=== PATIENT | female | born 1995 | race Caucasian/White ===

== ENCOUNTER 2016-06-30 09:41 | Inpatient (IN) | payer OTHER ==
[~2016-06-30] VITALS: Ht 170.2 cm; Wt 83.8 kg
--- NOTE | ~2016-06-30 | RESCARESUM ---
PATIENT: VIN GOMEZ | | [facility] UNIT #: [id number] | [address] AGE/SEX: 21 F : [birth year] | [address] | [place] [address] ADMIT/REG DATE: 06/30/16 | ROOM: [facility] LOC: ADTC | ADTC | Summary of Residential Care Primary Counselor: Lanette EDMONDS Date of Admission: 06/30/16 Date of Discharge: 07/19/16 Referral Source: Director Operating Room Carleen Dorantes and Florence Brown Primary Care Provider Prior to Admission: Self Admitting Diagnosis: 304.40 Stimulant Use Disorder, Severe, with history of IV use; 305.10 Tobacco Dependence; Increased risk of HIV and Hepatitis C; Late menstrual period; Dental Caries, ALL PER DR[facility]. Discharge Diagnosis: Same, along with positive test. Goals Achieved: Vin was able to complete the initial paperwork, including Step 1, which helped her to identify negative consequences of her addiction, along with gaining insight to the disease concept. She wrote and processed feelings letters and worked thru the crisis of finding out she's . Continued Obstacles to Sobriety/Relapse Issues: Not [facility], male relationships, not dealing with feelings, not attending AA/NA meetings, not getting a job, not learning how to work a strong program of recovery. Family Issues Addressed: Vin's Mom was deported when she was 12, so we worked thru that grief. She broke up with her boyfriend, who is the father of her baby, and her sister had been dealing with health issues, so all of these things were addressed and worked thru. Y Individual Therapy Y Group Therapy Y Educational Series on Substance Abuse Y Parents/Significant Others Attended Family Program N Acute Medical Problems During the Course of Treatment N Transferred to Hospital During the Course of Treatment Y Accepting of Substance Abuse Problem N Non-accepting of Substance Abuse Problem N Required Psychological or Psychiatric Consultation During the Course of Treatment Completed AA Step # 1 During This Level of Care Significant Incidences During Treatment: While here in treatment, Vin did a test, and it was negative. A week later, she asked about doing another, as she "felt ". The second test was positive. She was upset, scared, excited, and not sure which one she should even be feeling. She did a good job dealing with it. Reason For Discharge: Y Completed Residential [place] Goals and Ready For Next Level of Care PATIENT: VIN GOMEZ K | | [facility] UNIT #: [id number] | [address] AGE/SEX: 21 F : [birth year] | [address] | [place] [address] ADMIT/REG DATE: 06/30/16 | ROOM: [facility] LOC: ADTC | ADT | Summary of Residential Care N Left Tx Against Medical Advice/Treatment Goals Not Complete N Completed Residential Tx Goals But Refusing Continuing Care Recommendations N Discharged Due to Noncompliance/Treatment Goals not Completed N Discharged Earlier Than Planned Due to: Continuing Care Plan/Recommendations: N Intensive Partial Care Y Sponsor N Partial Care Y AA Meetings/NA Meetings N Outpatient N Co-dependency Services Y Therapeutic Community N 1/[address] [facility] [address] [facility] N Mental Health Therapy N Marriage Counseling N Other Specific Continuing Care Plan: It is recommended that Vin go directly to [facility], follow all rules and regulations, learn how to work their program, as well as to begin attending AA/NA meetings, get a director multimedia job and learn how to work a strong program of recovery. PRIMARY COUNSELOR: KENDAL Martin
--- NOTE | ~2016-06-30 | INDIVTXPLN ---
"PATIENT: VIN GOMEZ | | [facility] UNIT #: [id number] | [address] AGE/SEX: 20 F : [birth year] | [address] | [place] [address] ADMIT/REG DATE: 06/30/16 | ROOM: [facility] LOC: ADTC | ADTC | Individualized Treatment Plan Date: 07/05/16 Problem Statement/Issue Identified: Client has learned to deny or stuff feelings; needs to learn to identify and process feelings in a clean/sober manner. Goal: Client will learn how to identify and express feelings in a healthy, clean/sober manner. Objectives/Activities to achieve goal: 1. Client is to write the following people feelings letters, each separately, and process them with counselor and in family group when able: Her Mother, Father, Significant Other, Son and Sister. Due Date:07/15/16 Complete: Incomplete: Client signature Date Counselor signature Date Outcome/Measurement of Progress Towards Goal: Counselor's signature Date "
--- NOTE | ~2016-06-30 | TXPLANREV ---
"PATIENT: VIN GOMEZ | | [facility] UNIT #: [id number] | [address] AGE/SEX: 20 F : [birth year] | [address] | [place] [address] ADMIT/REG DATE: 06/30/16 | [facility] | ADTC | Treatment Plan/Staffing Review Date: 07/12/16 Treatment plan was reviewed and determined appropriate as written: Yes Treatment plan was reviewed and the following changes/addition/deletions are necessary: Client is to continue working on treatment plan assignments. She is working on feelings letters. Discharge plans were reviewed and determined appropriate as previously documented: No Discharge plans were reviewed and determined to be as follows: [facility], where she will also be recommended to attend AA/NA meetings, as well as to get and call a sponsor on a regular basis. Other pertinent issues discussed during this staffing review include: None at this time. Staff Present: Barbara Mederos PRIMARY COUNSELOR: KENDAL Martin Client Signature Counselor Signature Date Time "
--- NOTE | ~2016-06-30 | CLPRLASSUM ---
PATIENT: VIN GOMEZ | | [facility] UNIT #: [id number] | [address] AGE/SEX: 20 F : [birth year] | [address] | [place] [address] ADMIT/REG DATE: 06/30/16 | ROOM: [facility] LOC: ADTC | ADTC | Client Problem List/Assessment Summary Date: 07/05/16 Problems identified by the client: Client has charges pending, and is on probation. Problems identified by significant others: Same Client's Strengths: Client identified her strengths as: Her Higher Power, hope and praying. Problem List: Code: T Client continues to use alcohol &/or drugs despite ongoing negative consequences. Code: T Client does not "reach-out to others for help" and instead resumes using alcohol &/or drugs. Code: T Client has learned to deny or stuff feelings; needs to learn to identify and process feelings with safe people to acquire the necessary skills to maintain group home sobriety. Code: T Client needs to identify relapse warning signs and develop a plan to deal with them as they arise. Code Lane: T: to be addressed during course of treatment O: problem noted, expected to resolve itself with abstinence--specific tx plan not required R: problem noted, will be referred upon discharge PRIMARY COUNSELOR: KENDAL Martin
--- NOTE | ~2016-06-30 | INDIVTXPLN ---
"PATIENT: VIN GOMEZ | | [facility] UNIT #: [id number] | [address] AGE/SEX: 20 F : [birth year] | [address] | [place] [address] ADMIT/REG DATE: 06/30/16 | ROOM: [facility] LOC: ADTC | ADTC | Individualized Treatment Plan Date: 07/05/16 Problem Statement/Issue Identified: Client continues to use alcohol &/or drugs despite ongoing negative consequences, including legal, and after having gone to treatment twice in the past 2 years, and being in IOP, and she did not reach out to others for help before she used/drank. Goal: Client will learn to identify negative consequences of her addiction, attend AA/NA meetings and meet women in recovery. Objectives/Activities to achieve goal: 1. Client is to complete the How to Get Started packet, process it with counselor and selected pages in group. Due Date:07/08/16 Complete: Incomplete: 2. Client is to complete Step 1, Process it with counselor and selected pages in group. Due Date:07/12/16 Complete: Incomplete: 3. Client is to attend AA/NA meetings, ask for and get at least 5 names and numbers of women in recovery and share that list with counselor. Due Date:07/22/16 Complete: Incomplete: Client signature Date Counselor signature Date Outcome/Measurement of Progress Towards Goal: Counselor's signature Date "
--- NOTE | 2016-06-30 15:34 | NUR ---
Education 1 Hour: Client heard a panel of speakers from the local recovery community, who shared their experience, strength and hope.
--- NOTE | 2016-06-30 16:00 | NUR ---
INITIAL SESSION 1 HR: Clt was oriented to tx plans, schedules and what to expect from tx and this counselor. She advised she had started IOP but was kicked out for not showing up. She stated she had been living with her boyfriend, and wants to go home to her sister's, who just found out she has cancer. She stated her sister needs her help. Clt also advised her mom was a former clt here, and has been deported back to [place] for not becoming a [place] citizen. Will process to see where she is w/ that.
--- NOTE | 2016-06-30 16:08 | NUR ---
ADMISSION NOTE Client is a 20 y/o, single female referred to treatment by probation and brought here today by her sister from [facility] where she had been for the last 10 days. Client states NKMA and brings no home medications with her today. Client resides in [place] with her significant other and his mother. Client anticipates that he sister, father and significant other will particiipated in family group. Client states DOC is meth, last used 24 days ago when she, "smoked a bowl." Client was searched, no contraband found. Rights/Responsibilities: Copy given and explained to client. Signed and accepted by client. Client oriented to physical lay out of the ADTC unit, given Big Book and admission packet. A Foster was assigned. Janay
--- NOTE | 2016-06-30 23:23 | NUR ---
TECH NOTE: Client redecorated the building for [facility] [employer], participated in Guided Meditation and attended on-site AA meeting. Did first day introductions SE: 1st day
--- NOTE | 2016-07-01 04:37 | NUR ---
Bed Note: Clt lay motionless in bed with eyes closed showing no distress at all bed checks.
--- NOTE | 2016-07-01 11:04 | NUR ---
FAMILY CONTACT: Daisy's dad was called, but he was at work, so couldn't talk. He was informed of visiting hours. Another call was made to daisy's sister, and a message was left w/ her informing her of the same and of family education.
--- NOTE | 2016-07-01 11:06 | NUR ---
TRAUMA NOTE: Will process clt's Mom being deported as her trauma.
--- NOTE | 2016-07-01 11:30 | NUR ---
PEER REVIEWS, 1 HR: Clt participated in peer review process and was able to give open and honest feedback to those receiving a review.
--- NOTE | 2016-07-01 11:30 | NUR ---
Group 1.5hr/ 9:1 Clients heard peers share GS/Step 1 packets and this client did get ORIENTED TO GROUP RULES and shared some about herself. She said her mom was deported back to [place] due to meth and she now has meth charges. Client related to home life being embarrassing as a kid.
--- NOTE | 2016-07-01 15:49 | NUR ---
Tech Note: Client watched the second half of Pleasure [employer]ven for education and is working on Getting Started.
--- NOTE | 2016-07-01 20:32 | NUR ---
Tech note: client watched tv and movies, attended optional offsite AA mtg SE:group
--- NOTE | 2016-07-02 04:33 | NUR ---
Bed note: client was in bed with eyes closed and no distess at all bed checks
--- NOTE | 2016-07-02 16:28 | NUR ---
Tech Note: Client attended N.A.Panel and is working on Step One. Client also had a visit.
--- NOTE | 2016-07-02 20:13 | NUR ---
tech note: Client did service work at offsite location where clients attended the AA meeting. Client watched tv. SE: visit.
--- NOTE | 2016-07-03 05:00 | NUR ---
Bed Note : Client had eyes closed and in no distress at all bed checks.
--- NOTE | 2016-07-03 16:24 | NUR ---
Tech Note: Client is working on step 1, went to scientologist and had visitors
--- NOTE | 2016-07-03 17:38 | NUR ---
Med note: client complained of headache pain level 7. motrin given
--- NOTE | 2016-07-03 22:03 | NUR ---
tech note: client c/o level 6 headache @ 2133,motrin 400 mg was given.
--- NOTE | 2016-07-03 23:37 | NUR ---
TECH NOTE: Client attended AA panel, participated in community clean and watched tv/movies. Attended optional [employer] meeting but left early SE: upcoming visits next weekend
--- NOTE | 2016-07-04 04:14 | NUR ---
BED NOTE: Client was in bed, motionless with eyes closed all three bed checks.
--- NOTE | 2016-07-04 07:27 | HP ---
ADMIT: 06/30/2016 RM/LOC: [facility] MR#: [id number] [address] [address] TIFFANIE GOMEZ [address] [place] [address] History and Physical SEX: F AGE: 20 : 1995 DATE OF SERVICE: CHIEF COMPLAINT: Chemical dependency. HISTORY OF PRESENT ILLNESS: Tiffanie is a 20-year-old, engaged white female admitted to residential level treatment at [facility] on June 30, 2016 after transfer from nursing home for 10 days. She is currently on probation for distribution of meth. She has been through treatment at [facility]. She states she had HIV and hepatitis C testing done a month ago at [facility]. She continued to use while in intensive outpatient treatment at the [facility] with charges pending for aiding in abetting, fraud, and ultimately was referred to residential level treatment. Tiffanie's drug of choice on admission was meth. She first started using meth at 15 years of age with an ex-boyfriend. States she used 3-4 g daily from the beginning. She states she has done daily off and on ever since. Her heaviest use was last year, when she would use two to four 8-ball a day. She states she for the most part smoked it. She has only done IV on one occasion. States her fiance and her both dealt off and on for years. She has been through treatment at [facility] twice in 2014 and 2015 and recently was an [facility] intensive outpatient. She denies second drug of choice. She admits to using marijuana four times and tried Xanax and Adderall a couple of times. States she never really liked alcohol, never really drank. She denies any other illicit drugs. PAST MEDICAL HISTORY: OPERATIONS: Include a in 2011 and tonsil and adenoidectomy. ILLNESSES: None. She has HIV and hepatitis C testing done a month ago at [facility] in [place] and does not know the results. SOCIAL HISTORY: A 20-year-old engaged white female, she has one child who is approximately 5 years of age. He is currently under temporary guardianship with his paternal grandparents. She states they will not leave the state and she is not going allow it. She smokes about a half a pack of cigarettes daily. Has dealt drugs off and on with her fiance. FAMILY HISTORY: Include cancer in a sister, diabetes in maternal grandmother. Her mother was a meth addict and is exported back to [place]. Father is from the [facility]. REVIEW OF SYSTEMS: Remarkable for being late on menstrual period and some dental extractions. Remainder of review of systems negative. PHYSICAL EXAMINATION: VITAL SIGNS: She is 5 feet 7 inches with a weight of 83.8 kg, blood pressure 100/56, pulse 84, temp 97.9. GENERAL APPEARANCE: A 20-year-old female, who is alert, oriented, appears ADMIT: 06/30/2016 RM/LOC: A.509 [facility] MR#: [id number] [address] [address] TIFFANIE GOMEZ [address] [place] [address] History and Physical SEX: F AGE: 20 : 1995 older than her stated age. HEENT: Pupils reactive. Extraocular muscles are intact. TMs normal. Throat unremarkable. She has had a number of dental extractions. NECK: Without nodes or masses. HEART: Regular without murmur. LUNGS: Clear. ABDOMEN: Soft, nontender, benign. BREASTS: Deferred. : Deferred. RECTAL: Deferred. EXTREMITIES: Reveal no clubbing, cyanosis, edema, tracks, or splinter hemorrhages. NEUROLOGIC: Grossly normal including light, touch, strength, DTRs. ASSESSMENT: 1. Stimulant use disorder, severe with history of IV use and prior dealing and distribution. 2. Tobacco use disorder. 3. Increased risk for human immunodeficiency virus and hepatitis C with IV drug use and dating a dealer. 4. Late menstrual period. 5. Dental caries. PLAN: We will try to obtain her recent HIV and hepatitis C testing results. We will obtain the urine test due to her late menstrual period. We will proceed with drug and alcohol abuse dependency treatment and counseling for further evaluation and management based on course during hospitalization. Please see her hospital record for the details. Momo Brody MD/ will JOB #: [id number] CC: Momo Brody, Attending Physician NO FAMILY PHYSICIAN, Family Physician
--- NOTE | 2016-07-04 10:40 | NUR ---
Tech notes: Client is working on Step 1 and Lab today
--- NOTE | 2016-07-04 12:43 | NUR ---
Experiential Group 1.5 hr/ Clients all participated in family sculpturing by role-playing, feedback, and relating. They also shared what they needed to get help with and a gratitude. She wants help with parenting and thanked a male peer for helping her see issues with her parenting.
--- NOTE | 2016-07-04 13:49 | NUR ---
IS 1 HR: Processed clt's BPS. She shared about her son living with his grandparents, but who are moving to [facility] and she isn't wanting them to do so, as she still has legal custody of him, but the grandparents have temporary guardianship. He has been with his paternal grandparents his whole life. Daisy heard it may be that they will get to keep him, due to her lack of taking him home w/ her. She shared about her Mom getting deported when she was 12 yrs old, and how it affected her. She knows if Mom were still here, she'd be using or , so now she is grateful she got deported, but not as a 12 yr old. Daisy is working on Step 1.
--- NOTE | 2016-07-04 16:00 | NUR ---
RECOVERY 101 1 HR/ Clients learned about Fundamentals of recovery and tools from AA/NA. They participated by sharing what they hear at meetings that are important for their recovery like: working the steps, how to get and use sponsors, reading C.A.L. literature, service work, HP concept, opening up, slogans, using the Serenity Prayer, attending functions, what is closed and open meetings, etc.
--- NOTE | 2016-07-04 19:07 | NUR ---
Education 1HR: Clt attended lecture given by counselor on "Communication".
--- NOTE | 2016-07-04 22:32 | NUR ---
Tech note: Client participated in group by playing catch phrase. Client attended an onsite NA meeting. SE: NA meeting
--- NOTE | 2016-07-05 05:07 | NUR ---
Bed note : Client was motionless with eyes closed at all bed checks.
--- NOTE | 2016-07-05 16:13 | NUR ---
A.M. 1.5 hr group/ratio 05/21 Group heard a getting started and a step one. Discussion was on not being too sure of yourself that you won't relapse. This client had some good feedback and shared how she relapsed several times.
--- NOTE | 2016-07-05 16:35 | NUR ---
Tech Note: Client watched video The Enabler and is working on Step 1.
--- NOTE | 2016-07-05 18:48 | NUR ---
Education: 1 Hour. Client attended presentation given by [facility] AIDS/STDS/HIV. HIV testing was available.
--- NOTE | 2016-07-05 20:17 | NUR ---
Relapse Prevention,06/03 1.0, Client attended and participated in relapse prevention education which focused on internal and external triggers.
--- NOTE | 2016-07-05 23:08 | NUR ---
Tech note: Client participated in rec by playing pictionary. Client went to guided meditation and attended an onsite AA meeting. SE: Remembering why she is here
--- NOTE | 2016-07-06 05:34 | NUR ---
tech note: client was motionless in no distress at all bed checks.
--- NOTE | 2016-07-06 09:12 | NUR ---
SPIRITUAL EDUCATION 1 HR. We started a two part education on Forgiveness today and group discussion on cardona points.
--- NOTE | 2016-07-06 10:20 | NUR ---
Tech Notes: Client is working on BB
--- NOTE | 2016-07-06 11:30 | NUR ---
GROUP 1.5 HRS. 1:10 Clients oriented new peer to purpose and rules of group. Peers processed HOW TO GET STARTED IN TREATMENT and STEP 1 ASSIGNMENTS including compromising values and effects on others. This client appeared attentive and offered appropriate feedback. She shared about her mom being deported when client was 11 years old.
--- NOTE | 2016-07-06 23:25 | NUR ---
Tech note:Client participated in rec-worked on beaded projects SE:group and NA
--- NOTE | 2016-07-06 23:40 | NUR ---
Education: 1 hour lecture on step 2 & 3 given by counselor
--- NOTE | 2016-07-07 04:40 | NUR ---
Bed note: client was in bed with eyes closed and no distress at all bed checks.
--- NOTE | 2016-07-07 08:59 | NUR ---
IS 1 HR: Processed clt's How to Get Stated pkt. She shared she's been to [place] 3 previous times, 2 at [facility] in 2014 and 2015, then IOP here. She stated she has gotten more out of the week she's been here than she did the two times she went to . She reported they were too lenient, allowed her to have her phone, let her go to the gas station any time she wanted. She stated she needs structure, like what we have. She heard if she's ready for a change, she'll change, no matter where she is. Clt stated she is sad because her b/f who was in IOP relapsed, and she now wants him to focus on himself and she needs to take him off her visitors list, and focus on herself. She stated her friends are telling her he's hitting people up on FB, and they are all using people, so she doesn't want him coming to family or anything, either. She ws given kudos for taking care of herself.
--- NOTE | 2016-07-07 11:37 | NUR ---
Group 1.5hrs 1:10 Two new clients were orientated about group goals and rules. Client shared her Getting Started packet and feedback was given by peers. Client shared about being distracted with outside issues concerning her child. Student- Osmar Grant
--- NOTE | 2016-07-07 14:21 | NUR ---
Education 1 Hour: Client heard a presentation on, "Marijuana."
--- NOTE | 2016-07-07 15:12 | NUR ---
Tech Note: Client participated in Spiritual Enrichment in the morning and walked in the halls for afternnon exercise. Client stated that she is working on Step One and writing Feelings Letters.
--- NOTE | 2016-07-07 16:36 | NUR ---
Education: 1hr Participated in Step 2 work group. Very involved in the group discussion.
--- NOTE | 2016-07-07 23:06 | NUR ---
Tech Note: Client participated in rec and attended A.A.Meeting.
--- NOTE | 2016-07-07 23:23 | NUR ---
Education Note: Client watched the healthy families video which lasted an hour.
--- NOTE | 2016-07-08 04:49 | NUR ---
Bed note: Client was in bed with eyes closed and no distress at all bed checks.
--- NOTE | 2016-07-08 11:30 | NUR ---
AM GRP 1.5 HRS, Ratio 1:11/ Grp was very confrontational this morning. She was confronted on rescuing, but got angry. When her peers were being confronted, and confronting each other, she put her head in her hands, and when asked what she was feeling, she stated she was annoyed because she lives this, and hates the confrontation.
--- NOTE | 2016-07-08 15:16 | NUR ---
PEER REVIEWS 1 HR: Clt participated in peer review process and was able to give open and honest feedback to those receiving a review.
--- NOTE | 2016-07-08 16:32 | NUR ---
Tech Note: Client watched a video "How to Sabotage Your Treatment" and is working on Feelings Letters.
--- NOTE | 2016-07-08 23:53 | NUR ---
TECH NOTE: Client participated in guideline reading, watched tv/movies and used the phone. Was upset after making phone calls SE: finding out a friend went to detox
--- NOTE | 2016-07-09 04:48 | NUR ---
BED NOTE: Client was in bed, motionless with eyes closed all three bed checks.
--- NOTE | 2016-07-09 12:24 | NUR ---
PEER REVIEWS 1 HR: Clt participated in peer review process and was able to give open and honest feedback to those receiving a review.
--- NOTE | 2016-07-09 16:22 | NUR ---
Tech Note: Client went to AA mtg at [address] [place] [address]. Is working on Feelings Letters. Client had a visitor.
--- NOTE | 2016-07-09 20:06 | NUR ---
TECH NOTE: Client played Catch Phrase for REC, attended off site AA meeting, watched TV/movies and used phone. SE: visitors
--- NOTE | 2016-07-10 04:50 | NUR ---
Bed Note: Clt lay motionless in bed with eyes closed showing no distress at all bed checks.
--- NOTE | 2016-07-10 16:08 | NUR ---
Tech Note: Client participated in Big Book Study. Client stated that she is working on writing Feelings Letters. Client attended sikh in the morning and received a visitor in the afternoon.
--- NOTE | 2016-07-10 22:54 | NUR ---
TECH NOTE: Client attended AA panel, participated in community clean and watched tv/movies. attended security strategist meeting SE: visits
--- NOTE | 2016-07-11 04:25 | NUR ---
Bed Note: Clt lay motionless in bed with eyes closed showing no distress at all bed checks.
--- NOTE | 2016-07-11 10:18 | NUR ---
Tech notes: Client is working on Fl's.
--- NOTE | 2016-07-11 11:30 | NUR ---
Morning Group, 05/25 ratio, 1.0 hours, Client attended and actively participated in group therapy. Client shared that she knew that her sister really needed her to be sober and that this is her 3rd time in treatment before the age of 21.
--- NOTE | 2016-07-11 12:43 | NUR ---
Education Note: Client attended educational speaker Kit on Crossaddiction.
--- NOTE | 2016-07-11 16:00 | NUR ---
RECOVERY 101 1 HR/ Clients all brought big books, were given highlighters and shown tools they can use in the big Book on: acceptance, 1/2measures, 12 promises, living in the solution-not the problem, resentments, 2 week prayer to forgiveness, etc. Clients took turns reading and some commented and asked questions.
--- NOTE | 2016-07-11 20:35 | NUR ---
Education: 1 hour lecture on feelings given by counselor
--- NOTE | 2016-07-11 23:46 | NUR ---
Tech Note: Client played a game for rec, and attended N.A.Meeting. SE: All Day
--- NOTE | 2016-07-12 04:02 | NUR ---
bed note: client was in bed with eyes closed and no distress at all bed checks.
--- NOTE | 2016-07-12 12:42 | NUR ---
A.M. 1.5 hr res group/ratio 1:9/ Group heard a getting started assignment, topics focused on anger and anger managment, assertivnes verses aggressive, making amends, forgiving self, and appropriate feedback. A new group member was introduced to group rules and introductions. This client related and said her mom was a drug user.
--- NOTE | 2016-07-12 15:00 | NUR ---
BIG GRP 5:21/ We had a big grp to confront sleeping pills being on the unit, dishonesties, and anything else going on that needed to be addressed. Clt denied knowing someone had brought anything on the unit. She made several comments telling the person/people who knew anything to speak up, as the counselors here know what's going on, that they all need to stop playing games.
--- NOTE | 2016-07-12 15:15 | NUR ---
Education Note: Client heard a presentation on, "Grief."
--- NOTE | 2016-07-12 16:00 | NUR ---
IS 1 HR: Daisy was pulled into radio program checker's office, as she had gone to her earlier and told her she didn't want to work w/ this counselor any longer. She stated I had brought things up in front of everyone this morning, that I had worked with her Mom over 10 yrs ago and that she thought it was a conflict of interest. Daisy stated she thought about it, and doesn't feel that way now. We then came to this counselor's office and we discussed it further and she was just upset that she had been told a joselin couldn't visit this weekend. We did discuss that she had started a relationship w/ another joselin, and that she had broken up with her boyfriend. She heard that she will [facility], and at first she stated she didn't want to go, and wasn't even going to think about it. Before the session was over, she admitted she knows that she can't get away with crap w/ me as her counselor and she hates it, but loves it, and asked for the papers to fill out for [facility].
--- NOTE | 2016-07-12 16:29 | NUR ---
Tech Note: Client particiapted in light stretching for morning exercise and walked in the halls in the afternoon. Client stated that she is working on writing Feelings Letters.
--- NOTE | 2016-07-13 00:07 | NUR ---
Education: 1 hour lecture given by Counselor on Step 1
--- NOTE | 2016-07-13 00:22 | NUR ---
Tech note: client worked on projects for the alumni donna for rec and attended AA meeting SE: giving out a 30 day chip to another client.
--- NOTE | 2016-07-13 04:17 | NUR ---
Bed Note: Clt lay motionless in bed with eyes closed showing no distress at all bed checks.
--- NOTE | 2016-07-13 10:31 | NUR ---
Tech Notes: Client is working on Fl's.
--- NOTE | 2016-07-13 13:28 | NUR ---
Education note: Client attended education by [facility]
--- NOTE | 2016-07-13 16:00 | NUR ---
REFERRAL: Contact was made w/ the director of the [facility], and clt was discussed. She was accepted and has a bed waiting for her on Wednesday 07/19. She is to be there by 12:00. Clt was excited, happy, nervous and grateful all rolled into one.
--- NOTE | 2016-07-13 16:35 | NUR ---
Crisis intervention .25 Client received test results for her test and they came back positive. Client was visibly upset and crying at first, then was shocked about the situation. Client was unsure about how she felt about being .
--- NOTE | 2016-07-13 17:50 | NUR ---
SPIRITUAL EDUCATION 1 HR. Today we discussed ways to quiet the mind and meditation and creativity.
--- NOTE | 2016-07-13 19:42 | NUR ---
tech note: client c/o level 5 headache @ 1941,tylenol 650 mg was given.
--- NOTE | 2016-07-13 23:10 | NUR ---
tech note: Client played a game for recreation & attended onsite NA meeting. Client was redirected for going out into the lobby. Client was redirected by tech when she was seen hanging around former male client in the hallway,she was later redirected when seen hugging the same male multiple times. Client told tech that this male will be here to pick her up when she leaves next monday. Client was redirected by tech for inappropriate language in the client meeting. SE: being accepted into [facility].
--- NOTE | 2016-07-14 02:19 | NUR ---
Education: 1 Hour. Client attended "Unresolved Anger" video & discussion presented by staff.
--- NOTE | 2016-07-14 04:59 | NUR ---
BED NOTE: Client was in bed motionless with eyes closed all three bed checks.
--- NOTE | 2016-07-14 11:30 | NUR ---
AM GRP 1.5 HRS, Ratio 1:12/ Clt offered good feedback and could relate to parents using drugs and the kids acting like adults. She stated her mom used and it got her deported. She has learned to forgive her, but it still hurts.
--- NOTE | 2016-07-14 12:54 | NUR ---
Tech Note: Client participated in Spiritual Enrichment. Client stated that she is working on writing Feelings Letters and reading the Big Book.
--- NOTE | 2016-07-14 13:09 | NUR ---
Education 1 Hour: Client heard a presentation from a member of the recovery community, who shared his experience, strength and hope.
--- NOTE | 2016-07-14 16:57 | NUR ---
FAMILY EDUCATION 3 HRS. Client attended alone and took part in the discussion on the disease concept. Client shared chemical history and the consequences. Client tearful as peer's sons talked about being lonely when their mom was using.
--- NOTE | 2016-07-14 20:22 | NUR ---
Education 1HR: Clt watched video by Susanne Horan on Step 5.
--- NOTE | 2016-07-14 22:38 | NUR ---
TECH NOTE: Client played Catch Phrase for REC, participated in Guided Meditation and attended onsite AA meeting. SE: acceptance to [facility]
--- NOTE | 2016-07-15 04:27 | NUR ---
Bed Note: Clt lay motionless in bed with eyes closed showing no distress at all bed checks.
--- NOTE | 2016-07-15 11:58 | NUR ---
Group 1.5 Hr Ratio 1:10/Topics today were a step one a grief letter and a getting started packet. Client shared positive feedback to peers sharing issues and assignments.
--- NOTE | 2016-07-15 13:00 | NUR ---
PEER REVIEWS 1.25 HRS: Clruben participated in peer reviews and received her own. She heard she keeps things inside, hides it with laughter, tries to be the one in control, gets irritated when things don't go her way, stuck in high school and feeds on drama, is self-centered, codependent, holds on the the past, is quick tempered, immature, doesn't follow the rules. She felt flad, ashamed and afraid.
--- NOTE | 2016-07-15 15:51 | NUR ---
Tech Note: Client watched a video "It Can't Happen To Me" and is working on the Big Book.
--- NOTE | 2016-07-15 22:42 | NUR ---
Tech note : Client watched tv, played games and talked on the phone. Client walked to an offsite AA meeting. She made a phone call to the father of her child to be. SE; All day
--- NOTE | 2016-07-16 05:01 | NUR ---
Bed note: Client was in bed with eyes closed and no distress at all bed checks.
--- NOTE | 2016-07-16 15:15 | NUR ---
Tech Note: Client attended N.A.Panel and is working on FL's, and Big book.
--- NOTE | 2016-07-16 20:45 | NUR ---
tech note: client played game for recreation & attended offsite AA meeting. Client used the phone. SE: family.
--- NOTE | 2016-07-17 16:03 | NUR ---
Tech Note: Client is working on [place]. She attended sikh and had a visit.
--- NOTE | 2016-07-17 21:37 | NUR ---
med note: client complained of tooth ache pain level 4. tylenol 650 given
--- NOTE | 2016-07-17 22:22 | NUR ---
Tech note: Participated in community clean, attended AA panel with Osmel Iyer and went to an onsite PRINTING MECHANIST meeting. SE; Family
--- NOTE | 2016-07-18 04:59 | NUR ---
Bed note: Client was in bed with eyes closed and no distress at all bed checks.
--- NOTE | 2016-07-18 11:30 | NUR ---
Experiential Group 1.5hr/ Clients all participated in Family Sculpturing by role-playing, relating and giving feedback. This client was involved and attentive.
--- NOTE | 2016-07-18 13:27 | NUR ---
Education note: Client attended education speaker Ashley on Tobacco.
--- NOTE | 2016-07-18 14:19 | NUR ---
Tech Note: client is working on BB
--- NOTE | 2016-07-18 14:23 | NUR ---
FINAL SESSION 1 HR: Clt reported she is nervous, yet so excited to go [facility]. SHe advised her sister still wants her to go home, but she knows she needs to give this a chance to work. She stated she learned more tools here in these past 3 weeks than she did at and is glad she got to come here. She did the survey, we did her continued care plan and she was given a coin and completed thru tx.
--- NOTE | 2016-07-18 18:04 | NUR ---
Education: 1 Hour. Client attended "Forgiveness" lecture presented by staff.
--- NOTE | 2016-07-18 23:16 | NUR ---
tech note: client attended Family Session. Client has 30 days clean. SE: Family & sister being cancer free.
--- NOTE | 2016-07-19 04:34 | NUR ---
tech note: client was motinless in no distress at all bed checks.
--- NOTE | 2016-07-19 07:32 | NUR ---
Tech Note: Client discharged with all property. No medications to take with her. Has ride to [facility].
--- NOTE | 2016-07-19 11:06 | NUR ---
FAMILY EDUCATION 3 HRS Client attended family group with her sister. Client shared about being scared of not getting her child back. Client also shared about her mothers absence and how her sister took care of her.
--- NOTE | 2016-09-05 17:44 | DS ---
ADMIT: 06/30/2016 RM/LOC: [facility] [place] [facility] MR#: [id number] [address] VIN GOMEZ [address] [place] [address] General Discharge Summary SEX: F AGE: 20 : 1995 ADMISSION DATE: 06/30/2016 DISCHARGE DATE: 07/19/2016 INDICATION FOR HOSPITALIZATION: Vin is a 21-year-old engaged white female admitted to residential level treatment at [facility] on 06/30/2016 on transfer from retirement after 10 days. She had been on probation for distribution of meth. She continued to use while in intensive outpatient treatment and was referred to residential level. She additionally has charges pending for aiding and abetting, fraud, and ultimately was referred to residential level treatment. Her drug of choice was methamphetamines. Please see her admission H and P for the details regarding her history of present illness, past medical history, physical exam, and assessment at time of hospitalization. HOSPITAL COURSE: On admission, Vin was admitted to our residential level treatment shay. Urine test was obtained and HIV and hepatitis C testing were ordered if not done. She was started on Zanaflex for muscle spasm. Later, Zanaflex, ibuprofen, and Claritin were discontinued and she was started on vitamins due to a positive test. During treatment, her primary counselor assigned was OPHELIA Martin LADC. She underwent individual and group therapy sessions on drug and alcohol abuse dependency. She completed an educational series on substance abuse. Issues regarding her mother being deported at 12 years of age were addressed. Issues regarding breaking up with her boyfriend and her sister's health issue were addressed during the family portion of treatment program. Relapse triggers were identified. Relapse prevention plan was outlined. She was overall accepting of her substance abuse problems. She completed step 1 of Alcoholics Anonymous. Significant incidences during treatment were positive test. Reason for discharge was completion of residential level treatment goals. Aftercare recommendations include admission to the [facility] with sponsor assignment, therapeutic community, and active AA and NA meeting involvement. Lab and x-ray data include a positive urine test on July 13, and July 04, it was negative. DISCHARGE MEDICATIONS: Medications at time of discharge include: 1. vitamins 1 mg. 2. Folic acid. ADMIT: 06/30/2016 RM/LOC: [facility] [place] [facility] MR#: [id number] [address] VIN GOMEZ [address] [place] [address] General Discharge Summary SEX: F AGE: 20 : 1995 DISCHARGE DIAGNOSES: Include: 1. Stimulant use disorder, severe, with history of IV use. 2. Tobacco use disorder. 3. Increased risk for human immunodeficiency virus and hepatitis C. 4. Late menstrual period with positive urine test. 5. Dental caries. PROCEDURES: Include referral for care, initiation of vitamins, medication, first trimester counseling along with her drug and alcohol abuse dependency treatment and counseling. Please see her hospital record for further details. Momo Brody MD/ will JOB #: [id number] CC: Momo Brody MD, Attending Physician NO FAMILY PHYSICIAN, Family Physician
== END 2016-07-19 07:33 | disposition home or self-care (01) | DRG 895 ==
LOC: ADTC 12:09
PROVIDERS: ADMIT Family Medicine
PROC: HZ34ZZZ Individual Counseling for Substance Abuse Treatment, Interpersonal (ICD-10-PCS; principal; 2016-06-30)
PROC: HZ43ZZZ Group Counseling for Substance Abuse Treatment, 12-Step (ICD-10-PCS; principal; 2016-06-30)
PROC: HZ63ZZZ Family Counseling for Substance Abuse Treatment (ICD-10-PCS; 2016-07-08)
PROC: 3E0234Z Introduction of Serum, Toxoid and Vaccine into Muscle, Percutaneous Approach (ICD-10-PCS; 2016-07-08)
DX: F15.20 Other stimulant dependence, uncomplicated (principal); K02.9 Dental caries, unspecified; Z65.2 Problems related to release from prison; Z72.89 Other problems related to lifestyle; Z23 Encounter for immunization; Z65.3 Problems related to other legal circumstances